=== PATIENT | female | born 1945 | race Caucasian/White ===

== ENCOUNTER → 2017-05-11 | Outpatient (CLI) | payer MEDICARE, OTHER ==
[~2017-05-11] MED LIST: ASA CHILDREN'S81 MG PO; B-12 INJ1000 MCG/M IM; CALTRATE-600 W600 MG PO; COLACE-DPS100 MG PO; COREG DPS3.125 MG PO; CRESTOR10 MG PO; FEOSOL-DPS325 MG PO; FLEXERIL-DPS10 MG PO; LASIX DPS20 MG PO; LUTEIN20 MG PO; MULTIPLE VITAM1 EACH PO; MYRBETRIQ25 MG PO; NITROMIST8.5 GM NS; OCEAN NASAL MIS45 ML NS; OMEGA-3 DPS1000 MG PO; PRESERVISION A1 EACH PO; PRISTIQ50 MG PO; SENOKOT S1 TAB PO; SUDAFED DPS30 MG PO; TESSALON PERLE100 M1 PO; TYLENOL EXTRA500 M1 PO; ULTRAM DPS50 MG PO; VITAMIN B-121000 MCG PO; WELLBUTRIN XL150 MG PO; XARELTO10 MG PO; ZANTAC DPS150 MG PO; ZYRTEC DPS10 MG PO
== END | disposition home or self-care (01) ==
LOC: RAD.S 12:54
DX: Z12.31 Encounter for screening mammogram for malignant neoplasm of breast (principal)